=== PATIENT | female | born 1995 | race African-American/Black ===

== ENCOUNTER 2020-10-22 16:34 | Observation (INO) ==
[2020-10-22 17:10] LABS: Basophils # 0.1 10*3/uL (0.0-0.2); Basophils % 0.7 % (0.0-0.8); Eosinophils # 0.1 10*3/uL (0.0-0.87); Eosinophils % 1.9 % (0.00-10.9); Hematocrit 37.5 VOL% (35.7-47.0); Hemoglobin 11.3 GM/DL (12.0-16.0); Immature Granulocytes % 0.3 %; Immature Granulocytes Absolute 0.02 #; Lymphocytes # 2.3 10*3/uL (1.4-4.0); Lymphocytes % 33.4 % (21.3-54.2); Mean Corpuscular HGB Conc 30.1 GM/DL (32-36); Mean Platelet Volume 10.7 FL (9.6-12.0); Monocytes % 10.6 % (1.7-12.7); Neutrophils % 53.1 % (38.7-73.9); Platelet Count 251 T/CUMM (130-400); Red Blood Count 4.41 MC/CUMM (3.8-5.5); Red Cell Distribution Width 20.9 % (9.3-17.3); White Blood Count 6.8 T/CUMM (4-12)
[2020-10-22 17:21] LABS: Bilirubin,Urine Negative (Negative); Blood, Urine Large mg/dL (Negative); Glucose,Urine (UA) Negative (Negative); Ketones,Urine Negative (Negative); Nitrite,Urine Negative (Negative); Protein,Urine 100 MG/DL; RBC,Urine 87 /HPF (0-4); Squamous Epithelial Cell,Urine Occasional /HPF (0-10); Urine Appearance CLEAR (Clear); Urine Color Red (Yellow); Urine Specific Gravity 1.004 (1.001-1.035); Urine Urobilinogen < 2.0 EU/DL (0.2-1.0)
[2020-10-22 17:23] LABS: Barbiturates Screen,Urine Negative (Negative); Benzodiazepines Screen,Urine Positive (Negative); Cannabinoid Screen,Urine Positive (Negative); Opiate Screen,Urine Negative (Negative); Phencyclidine Screen,Urine Negative (Negative)
[2020-10-22 17:30] LABS: Alanine Aminotransferase 22 U/L (13-56); Albumin 3.8 G/DL (3.4-5.0); Alkaline Phosphatase 99 U/L (45-117); Aspartate Amino Transferase 19 U/L (0-37); Bilirubin,Total < 0.39 MG/DL (0.2-1.0); Blood Urea Nitrogen 8 MG/DL (7-18); Calcium 9.1 MG/DL (8.5-10.1); Carbon Dioxide 25 MMOL/L (21-32); Estimated Glom Filtration Rate 115 ML/MIN; Glucose 71 MG/DL (74-106); Osmolality,Calculated 274.4 MOS/KG (273-304); Potassium 3.4 MMOL/L (3.5-5.1); Sodium 140 MMOL/L (136-145); Total Protein 8.7 G/DL (6.4-8.2)
[2020-10-22 17:32] LABS: Eosinophils 1 % (0-10); Lymphocytes 39 % (20-55); Segmented Neutrophils 52 % (50-85); Total Cells Counted 100
[2020-10-22 17:33] LABS: Hypochromasia 1+; Microcytosis 1+; Platelet Estimate Increased; Polychromasia Slight; Target Cells Few
[2020-10-22 17:34] LABS: Salicylate 3.2 MG/DL (2.8-20)
[2020-10-22 17:35] LABS: Acetaminophen < 2.0 UG/ML (10-30)
[2020-10-22] MEDS ORDERED: cefTRIAXone 1,000 MG in SODIUM CHLORIDE 0.9% 100 ML IV STA (17:48)
[2020-10-22] MEDS ORDERED: ONDANSETRON 4 MG/2 ML VIAL IV PRN (21:09)
[2020-10-22] MEDS ORDERED: guaiFENesin/DM ER 600-30 MG TABLET PO PRN (21:09)
[2020-10-22] MEDS ORDERED: BISACODYL 5 MG TABLET PO PRN (21:09)
[2020-10-22] MEDS ORDERED: GLUCAGON 1 MG VIAL IM PRN (21:09)
[2020-10-22] MEDS ORDERED: NICOTINE 21 MG/24 HR PATCH TRANSDERM PRN (21:09)
[2020-10-22] MEDS ORDERED: DEXTROSE 50% 25 GM/50 ML VIAL IV PRN (21:09)
[2020-10-22] MEDS ORDERED: diphenhydrAMINE CAP 25 MG CAPSULE PO PRN (21:09)
[2020-10-22] MEDS ORDERED: hydrALAZINE 20 MG/1 ML VIAL IV PRN (21:09)
[2020-10-22] MEDS ORDERED: ZALEPLON 5 MG CAPSULE PO PRN (21:09)
[2020-10-23] MEDS: SODIUM CHLORIDE 0.9% 1,000 ML IV SCH ×2 (01:45→11:26)
[2020-10-23] MEDS ORDERED: ACETAMINOPHEN 325 MG TABLET PO PRN (03:19)
[2020-10-23] MEDS ORDERED: ACETAMINOPHEN 325 MG TABLET PO SCH (06:00)
[2020-10-23 07:57] LABS: Basophils # 0.1 10*3/uL (0.0-0.2); Basophils % 0.6 % (0.0-0.8); Eosinophils # 0.2 10*3/uL (0.0-0.87); Eosinophils % 2.3 % (0.00-10.9); Hematocrit 36.5 VOL% (35.7-47.0); Immature Granulocytes % 0.3 %; Immature Granulocytes Absolute 0.02 #; Lymphocytes # 2.6 10*3/uL (1.4-4.0); Lymphocytes % 33.5 % (21.3-54.2); Mean Corpuscular HGB Conc 30.1 GM/DL (32-36); Mean Corpuscular Volume 86.1 FL (87-102); Mean Platelet Volume 11.2 FL (9.6-12.0); Monocytes % 12.5 % (1.7-12.7); Neutrophils % 50.8 % (38.7-73.9); Platelet Count 230 T/CUMM (130-400); Red Blood Count 4.24 MC/CUMM (3.8-5.5); White Blood Count 7.7 T/CUMM (4-12)
[2020-10-23 08:31] LABS: Albumin 3.1 G/DL (3.4-5.0); Bilirubin,Total 0.5 MG/DL (0.2-1.0); Calcium 8.3 MG/DL (8.5-10.1); Osmolality,Calculated 278.3 MOS/KG (273-304); Total Protein 7.5 G/DL (6.4-8.2)
[2020-10-23] MEDS ORDERED: ENOXAPARIN 40 MG/0.4 ML SYRINGE SUBCUT SCH (09:00)
[2020-10-23] MEDS ORDERED: PANTOPRAZOLE 40 MG TABLET PO SCH (09:00)
[2020-10-23 12:08] VITALS: BP 115/69
== END 2020-10-23 13:15 | disposition home or self-care (01) ==
LOC: EDUNIT# → EDBD → N.ED 16:34 → N.EDINP 16:34 → SUATTDRO 21:09 → N.EDINP 10-23 00:59 → N.4E 10-23 01:07
PROVIDERS: ADMIT Internal Medicine; ATTEND Internal Medicine